=== PATIENT | female | born 1975 | race American Indian/Alaskan Native ===

== ENCOUNTER 2017-03-09 07:56 | Emergency (ER) | payer OTHER ==
[2017-03-09] MEDS ORDERED: TORADOL IM ONE (08:21)
[2017-03-09] MEDS ORDERED: TYLENOL PO ONE (08:21)
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
[2017-03-09 08:59] VITALS: BP 158/110
== END 2017-03-09 09:57 | disposition home or self-care (01) ==
LOC: ED 07:56
DX: M54.2 Cervicalgia (principal); R51 Headache; V49.59XA Passenger injured in collision with other motor vehicles in traffic accident, initial encounter; Y93.89 Activity, other specified; Y92.89 Other specified places as the place of occurrence of the external cause; Y99.8 Other external cause status
CPT/HCPCS: 96372; 99283; J1885